=== PATIENT | male | born 1945 | race Caucasian/White ===

== ENCOUNTER 2016-09-06 06:49 | Outpatient (CLI) | payer MEDICARE, OTHER ==
[~2016-09-06] VITALS: Ht 185.4 cm; Wt 98.2 kg
--- NOTE | ~2016-09-06 | HEMODYNAMI ---
PATIENT:VISHAL RAUSCH MEDICAL RECORD: [id number] : 45 LOCATION:[facility] ADMISSION DATE: 09/06/16 Generatedon:09/06/20169:05 Patient name: VISHAL RAUSCH Patient #: [id number] SSN: DO B: 1945 Date of study: 09/06/2016 Page: Of Hemodynamic Procedure Report Patient Data Patient Demographics Procedure consent was obtained First Name: VISHAL Gender: Male Last Name: MIRACLE : 1945 Patient #: [id number] Age: 70 year(s) Race: Additional ID: [id number] Contact details [address]: [address] [place] [address] State: [place] City: [place] Zip code: [address] Past Medical History Allergies: No known allergies Admission Admission Data Admission Date: 09/06/2016 Admission Time: 6:49 Procedure Procedure Types Cath Procedure Diagnostic Procedure LHC LHC w/Coronaries Miscellaneous Procedures Moderate Sedation up to 30 minutes Procedure Description Procedure Date Procedure Date: 09/06/2016 Procedure Start Time: 8:53 Procedure End Time: 9:05 Procedure Staff Name Function Cory Jimenez MD Performing Physician Dalia Mota RT Scrub Robbin Ramírez RN Nurse Kavitha Baltazar RT Monitor Procedure Data Cath Procedure Fluoroscopy Diagnostic fluoroscopy Total fluoroscopy Time: 3.2 time: 3.2 min min Diagnostic fluoroscopy Total fluoroscopy dose: 426 dose: 426 mGy mGy Contrast Material Contrast Material Type Amount (ml) Isovue 300 52 Entry Location Entry Primary Successful Side Size Upsize Upsize Entry Closure Succes sful Closure Location (Fr) 1 (Fr) 2 (Fr) Remarks Device Remarks Radial Right 6 Fr artery Short Femoral Right 5 Fr Exoseal artery Estimated blood loss: 5 ml Diagnostic catheters Device Type Used For End Catheter Placement Terumo 5Fr Thierno 110cm Left Coronary catheter Angiography Cordis 5Fr JL 4.0 Left Coronary Catheter (MP) Angiography Cordis 5Fr 3DRC Catheter Right Coronary (MP) Angiography Cordis 5Fr Pigtail LV Angiography Catheter (MP) Procedure Complications No complications Procedure Medications Medication Administration Route Dosage Oxygen NC 2 l/min Heparin Flush Bag added to field 2 bags (1000units/500ml NS) 0.9% NaCl I.V. 100 ml/hr Fentanyl I.V. 50 mcg Versed I.V. 1 mg Fentanyl I.V. 50 mcg Versed I.V. 1 mg Radial Cocktail added to field 1 syringe (Verapomil 2mg/Nitro 400mcg/Heparin 1500units) Radial Cocktail I.A. 1 syringe (Verapomil 2mg/Nitro 400mcg/Heparin 1500units) Hemodynamics Rest Heart Rate: 59 (bpm) Pressure Samples Time Site Value (mmHg) Purpose Heart Use Rate(bpm) 8:54 LV 134/14,30 EDP 59 8:54 AO 127/60(87) Pullback 60 8:54 LV 151/12,43 Pullback 60 Gradients Valve Time Site 1 Site 2 Mean SEP/DFP Peak To Heart Use (mmHg) (sec/min) Peak Rate (mmHg) (bpm) Aortic 8:54 LV AO 12 20 24 60 151/12,43 127/60(87) Calculations Valve P-P Mean Valve Index Valve Source Name Gradient Area Flow (cm2) Aortic 24 12 24 12 Snapshots Pre Cath Intra NCS Post Cath Vital Signs Time Heart Resp SPO2 etCO2 [id number] NIBP (mmHg) Rhythm Pain Sedation Rate (ipm) (%) (mmHg) (mmHg) Status Level (bpm) 8:32:45 72 20 94 0 0 145/72(126) NSR 0 (11) 10(A) , No pain 8:37:05 57 20 96 0 0 139/71(117) NSR 0 (11) 10(A) , No pain 8:41:25 57 19 96 0 0 138/68(101) NSR 0 (11) 9(A) , No pain 8:45:37 60 20 90 0 0 100/53(77) NSR 0 (11) 9(A) , No pain 8:49:45 57 16 93 0 0 110/60(88) NSR 0 (11) 9(A) , No pain 8:53:59 58 17 94 0 0 112/59(82) NSR 0 (11) 9(A) , No pain 8:58:13 58 19 94 0 0 105/56(90) NSR 0 (11) 9(A) , No pain 9:02:23 59 18 95 0 0 108/59(83) NSR 0 (11) 9(A) , No pain Medications Time Medication Route Dose Verified Delivered Reason Notes E ffectiveness by by 8:20:01 Heparin Flush added 2 bags Robbin Robbin used for Bag to Darrell Ramírez RN procedure (1000units/500ml field RN NS) 8:20:51 Oxygen NC 2 l/min Robbin Robbin Per Darrell Ramírez RN physician RN 8:21:04 0.9% NaCl I.V. 100 Robbin Robbin Per ml/hr Darrell Ramírez RN physician RN 8:38:12 Fentanyl I.V. 50 mcg Robbin Robbin for sedation Darrell Ramírez RN RN 8:38:20 Versed I.V. 1 mg Robbin Robbin for sedation Darrell Ramírez RN RN 8:38:39 Radial Cocktail added 1 Robbin Robbin used for (Verapomil to syringe Darrell Ramírez RN procedure 2mg/Nitro field RN 400mcg/Heparin 1500units) 8:42:47 Radial Cocktail I.A. 1 Robbin Cory for (Verapomil syringe Darrell Jimenez MD vasodilation 2mg/Nitro RN 400mcg/Heparin 1500units) 8:50:24 Fentanyl I.V. 50 mcg Robbin Robbin for sedation Darrell Ramírez RN RN 8:50:27 Versed I.V. 1 mg Robbin Robbin for sedation Darrell Ramírez RN teradata developer Log Time Note 8:10:29 Robbin Ramírez RN sent for patient. Start room use. 8:18:16 Time tracking: Regular hours 8:18:20 Plan of Care:Hemodynamics will remain stable., Cardiac rhythm will remain stable., Comfort level will be maintained., Respiratory function will remain adequate., Patient/ family verbilizes understanding of procedure., Procedure tolerated without complication., Recovers from procedure without complications.. 8:18:25 Patient received from Pre/Post Procedure Room to CCL 1 Alert and oriented. Tansferred to table in Supine position. 8:18:26 Warm blankets applied, and aditi hugger turned on for patient comfort. 8:18:27 Correct patient and procedure confirmed by team. 8:18:28 Signed procedure consent form obtained from patient. 8:18:29 ECG and BP/O2 sat monitors applied to patient. 8:18:29 Full Disclosure recording started 8:20:01 Heparin Flush Bag (1000units/500ml NS) 2 bags added to field was administered by Robbin Ramírez RN; used for procedure; 8:20:51 Oxygen 2 l/min NC was administered by Robbin Ramírez RN; Per physician; 8:21:04 0.9% NaCl 100 ml/hr I.V. was administered by Robbin Ramírez RN; Per physician; 8:31:36 Vital chart was started 8:31:42 Rhythm: sinus bradycardia 8:34:13 H&P Date Dictated: 09/04/2016 Within 30 days and on chart.. 8:34:15 Pre-procedure instructions explained to patient. 8:34:15 Pre-op teaching completed and patient verbalized understanding. 8:34:17 Family in waiting room. 8:34:18 Patient NPO since Midnight. 8:34:25 Patient allergic to No known allergies 8:34:37 Is the patient allergic to Iodine/contrast media? No. 8:34:43 Is patient on blood thinner?No 8:34:45 Patient diabetic? Yes. 8:34:48 If diabetic: On Metformin? Yes 8:34:53 If on Metformin: Last Dose? 09/04/2016 8:34:57 Previous problem with sedation/anesthesia? No ? 8:34:58 Snore? Yes 8:34:59 Sleep apnea? No 8:35:00 Deviated septum? No 8:35:01 Opens mouth fully? Yes 8:35:02 Sticks out tongue? Yes 8:35:04 Airway obstruction? No ? 8:35:06 Dentures? Yes In 8:35:11 Pre procedure: right dorsailis pedis pulse 2+ Normal; easily identifiable; not easily obliterated 8:35:13 Modified Nikita's test Ulnar < 7 seconds 8:35:15 Patient pain scale 0/10 ?. 8:35:23 IV patent on arrival in left hand with 0.9% NaCl at KVO. 8:35:29 Lab results completed and on chart. 8:36:28 Right Radial & Right Groin area was prepped with chlora-prep and draped in sterile fashion 8:36:29 Alarms reviewed by R. N. 8:36:30 Sharps counted by scrub and verified by R.N. 8:36:34 Use device set Radial Dx 8:36:35 Acist Syringe opened to sterile field. 8:36:36 Medline Cath Pack opened to sterile field. 8:36:36 Bag Decanter opened to sterile field. 8:36:37 Terumo 6Fr Slender Glidesheath opened to sterile field. 8:36:37 St Darryn 260cm J .035 wire opened to sterile field. 8:36:38 Acist Hand Control opened to sterile field. 8:36:38 Acist Manifold opened to sterile field. 8:36:39 Tegaderm 4 x 4 opened to sterile field. 8:36:39 MBrace Wrist Support opened to sterile field. 8:37:44 Final Timeout: patient, procedure, and site verified with staff and physician. All members of the team are in agreement. 8:37:51 Right Radial site verified by team. 8:37:54 Physical assessment completed. ASA score P 2 - A patient with mild systemic disease as per Cory Jimenez MD. 8:37:57 Sedation plan: IV Moderate Sedation Versed, Fentanyl 8:38:12 Fentanyl 50 mcg I.V. was administered by Robbin Ramírez RN; for sedation; 8:38:20 Versed 1 mg I.V. was administered by Robbin Ramírez RN; for sedation; 8:38:39 Radial Cocktail (Verapomil 2mg/Nitro 400mcg/Heparin 1500units) 1 syringe added to field was administered by Robbin Ramírez RN; used for procedure; 8:40:53 Zero performed for pressure channel P1 8:41:13 Local anesthetic to right radial artery with Lidocaine 2% by Cory Jimenez MD.INITIAL ACCESS ONLY 8:41:53 A 6 Fr Short sheath was inserted into the Right Radial artery 8:42:47 Radial Cocktail (Verapomil 2mg/Nitro 400mcg/Heparin 1500units) 1 syringe I.A. was administered by Cory Jimenez MD; for vasodilation; 8:45:35 A Terumo 5Fr Thierno 110cm catheter was advanced over the wire and used for Left Coronary Angiography. removed unable to torque catheter. 8:45:39 Local anesthetic to right femoral artery with Lidocaine 2% by Cory Jimenez MD.ADDITIONAL ACCESS 8:46:14 Terumo 5Fr [place] Sheath opened to sterile field. 8:46:15 Diagnostic Infinity 5Fr Multipack catheter opened to sterile field. 8:48:24 A 5 Fr sheath was inserted into the Right Femoral artery 8:48:31 A Cordis 5Fr JL 4.0 Catheter (MP) was advanced over the wire and used for Left Coronary Angiography. 8:50:24 Fentanyl 50 mcg I.V. was administered by Robbin Ramírez RN; for sedation; 8:50:27 Versed 1 mg I.V. was administered by Robbin Ramírez RN; for sedation; 8:50:54 Catheter removed. 8:51:01 A Cordis 5Fr 3DRC Catheter (MP) was advanced over the wire and used for Right Coronary Angiography. 8:52:07 Catheter removed. 8:52:12 A Cordis 5Fr Pigtail Catheter (MP) was advanced over the wire and used for LV Angiography. 8:53:51 Procedure started. 8:54:05 LV gram done using ROY 8:54:06 LV hemodynamics recorded. 8:54:09 Injector settings: Ml/sec: 10, Volume: 20, 8:54:16 EF : 60 % 8:55:49 Catheter removed. 8:55:56 Cordis 5Fr Exoseal opened to sterile field. 8:56:15 Sheath removed intact; hemostasis achieved with Exoseal to the Right Femoral artery. 8:56:16 Procedure ended.(Physican Out) 8:57:00 Fluoroscopy time 03.20 minutes. 8:57:05 Fluoroscopy dose: 426 mGy 8:57:05 Flurop Dose total: 426 8:57:12 Contrast amount:Isovue 300 52ml. 8:57:14 Sharps counted by scrub and verified by R.N. 8:57:16 Insertion/operative site no bleeding no hematoma. 8:57:19 Post-op/insertion site Right Femoral artery dressed using a 4 x 4 and Tegaderm. 8:57:22 Post right femoral artery:stable, clean and dry 8:57:55 Post Procedure Pulses reassessed and unchanged 8:57:59 Post-procedure physical assessment completed. ASA score P 2 - A patient with mild systemic disease as per Cory Jimenez MD. 8:58:03 Post procedure rhythm: unchanged. 8:58:07 Estimated blood loss: 5 ml 8:58:08 Post procedure instruction explained to patient.Patient verbalizes understanding. 8:58:09 Patient needs reinforcement of post procedure teaching. 8:58:21 Procedure type changed to Cath procedure, Diagnostic procedure, LHC, LHC w/Coronaries, Miscellaneous Procedures, Moderate Sedation up to 30 minutes 8:58:27 Procedure Complication : No complications 8:58:31 See physician's report for complete and final results. 8:59:05 Cook 21G 4cm Radial Needle opened to sterile field. 8:59:34 Procedure and supply charges have been captured, reviewed, submitted and are correct. 9:03:10 TR band inflated with 9cc of air. 9:03:20 Terumo TR Band Standard opened to sterile field. 9:04:59 Vital chart was stopped 9:05:01 Report given to Pre/Post Procedure Room. 9:05:04 Patient transfered to Pre/Post Procedure Room with Stretcher. 9:05:19 Procedure ended. 9:05:19 Full Disclosure recording stopped 9:05:22 End room use (Document Last) Device Usage Item Name Manufacture Quantity Catalog Hospital Part Current Minimal Lot# / Number Charge Number Stock Stock Serial# Code Acist Acist 1 29627 015761 368430 [id number] 20 Syringe [employer] Inc Medline Cardinal 1 [id number] 835959 89845 211881 5 Cath Pack Health Bag Microtek 1 2002S 187003 44220 670204 5 [employer] Terumo 6Fr Terumo 1 [id number] 616830 435971 237617 [address] St Darryn 1 812071 685846 981455 143885 30 260cm J .035 wire Acist Hand Acist 1 89611 877944 120316 041268 5 Control [employer] Inc Acist Acist 1 20936 107849 563292 049077 5 Manifold Medical [employer] Inc Tegaderm 4 3M 1 1626W 194823 463920 645363 5 x 4 MBrace Advanced 1 140-0250-00 942013 79921 540711 5 Wrist Vascular Support Dynamics Terumo 5Fr Terumo 1 40-8847 068453 567765 056386 5 Thierno 110cm catheter Terumo 5Fr Terumo 1 [id number] 150677 858219 409443 40 [place] Sheath Diagnostic Cardinal 1 [id number] 166762 30257 319443 30 Infinity Health 5Fr Multipack catheter Cordis 5Fr Cardinal 1 166009 5 JL 4.0 Health Catheter (MP) Cordis 5Fr Cardinal 1 740846 5 3DRC Health Catheter (MP) Cordis 5Fr Cardinal 1 237220 5 Pigtail Health Catheter (MP) Cordis 5Fr Cardinal 1 EX500 459635 737261 968232 10 [facility] Cook 21G [facility] 1 [id number] 895982 621889 709340 5 4cm Radial Needle Terumo TR Terumo 1 [id number] 039008 740331 646001 40 Band Standard Signature Audit [place] Stage Time Signature Unsigned Intra-Procedure 09/06/2016 Dalia 9:05:38 AM Counts RT(R) Signatures Monitor : Kavitha Baltazar RT Signature : Date : Time : [id number] [place] [address]
[2016-09-06] MEDS ORDERED: SYNTHROID100 MCG PO (07:27)
[2016-09-06] MEDS ORDERED: ACTOS45 MG PO (07:28)
[2016-09-06] MEDS ORDERED: CELEXA20 MG PO (07:28)
[2016-09-06] MEDS ORDERED: LIPOFEN50 MG PO (07:29)
[2016-09-06] MEDS ORDERED: LIPITOR40 MG PO (07:29)
[2016-09-06] MEDS ORDERED: GLUCOPHAGE500 MG PO (07:30)
[2016-09-06] MEDS ORDERED: GLIMEPIRIDE4 MG PO (07:31)
[2016-09-06] MEDS ORDERED: BAYER CHEWABLE81 MG PO (07:32)
[2016-09-06] MEDS ORDERED: CENTRUM MEN'S1 EACH PO (07:32)
[2016-09-06 07:42] VITALS: BP 180/90; Ht 185.4 cm; Wt 98.2 kg
[2016-09-06 07:56] LABS: BASOPHILS 0.7 % (0-2); EOSINOPHILS 2.1 % (0-7); HEMATOCRIT 36.4 % (42.0-54.0); HEMOGLOBIN 12.2 g/dL (13.5-17.5); IMMATURE GRANULOCYTES 0.2 % (0-5); LYMPHOCYTES 42.2 % (15-50); MCH 32.6 pg (26.0-34.0); MCHC 33.5 g/dL (31.0-37.0); MCV 97.3 fL (80.0-100.0); MEAN PLATELET VOLUME 11.6 fL (7.4-10.4); MONOCYTES 9.5 % (2-11); NEUTROPHILS 45.3 % (40-80); PLATELET COUNT 218 10x3/uL (130-400); RBC 3.74 10x6/uL (4.20-6.10); RDW 14.6 % (11.5-14.5); WBC 5.8 10x3/uL (4.8-10.8)
[2016-09-06 08:17] LABS: ANION GAP 13.6 mmol/L (8-16); CALCIUM 8.3 mg/dL (8.5-10.1); CARBON DIOXIDE 24.1 mmol/L (21.0-32.0); CREATININE - SERUM 1.3 mg/dL (0.6-1.3); POTASSIUM - SERUM 4.7 mmol/L (3.5-5.1)
--- NOTE | 2016-09-06 09:15 | NUR ---
0915 RECIEVED TO ROOM VIA STRETCHER FROM BLOOD BANK BOOKING CLERK WITH CHEST PAIN DENIED. TR BAND TO R/WRIST CDI NO BLEEDING NO HEMATOMA NOTED. 5 FR EXOSEAL R/GROIN CDI NO BLEEDING NO HEMATOMA NOTED. 09 TR BAND REMAINS CDI VSS WITH HR SB AT 58 CHEST PAIN IS DENIED. INSTRUCTED PATIENT TO KEEP HEAD FLAT ON PILLOW WITH RLE STRAIGHT
--- NOTE | 2016-09-06 10:01 | NUR ---
VSS WITH NO DISTRESS NOTED. PATIENT SLEEPING QUIETLY FAMILY AT SIDE. R/GROIN CDI NO BLEEDING NO HEMATOMA NOTED
--- NOTE | 2016-09-06 10:10 | NUR ---
DR HINES AT BEDSIDE TALKING TO AND PATIENT VSS NO DISTRESS NOTED R/GROIN CDI NO CHANGE IN ASSESSMENT
--- NOTE | 2016-09-06 10:34 | NUR ---
VSS WITH CHEST PAIN DENIED TR BAND REMAINS TO R/WRIST CDI NO BLEEDING NO HEMATOMA NOTED. 5 FR EXOSEAL R/GROIN CDI NO BLEEDING NO HEMATOMA NOTED
--- NOTE | 2016-09-06 11:04 | NUR ---
NO CHANGE IN ASSESSMENT PATIENT CONTINUES TO SLEEP
--- NOTE | 2016-09-06 11:11 | NUR ---
2 CC AIR REMOVED FROM TR BAND WITH NO BLEEDING NOTED. 5 FR EXOSEAL R/GROIN CDI NO BLEEDING NO HEMATOMA NOTED. WILL MONITOR
--- NOTE | 2016-09-06 11:21 | NUR ---
REPOSITIONED TO SITTING WITH HOB UP 30 DEGREES. 2 CC AIR REMOVED FROM TR BAND WITH NO BLEEDING NOTED. 5 FR EXOSEAL R/GROIN REMAINS CDI WITH CHEST PAIN DENIED.
--- NOTE | 2016-09-06 11:34 | NUR ---
PIV REMOVED WITH DRESSING APPLIED. 2 CC AIR REMOVED FROM TR BAND WITH NO BLEEDING NO HEMATOMA NOTED. PATIENT UP TO GET DRESSED FOR DISCHARGE HOME CHEST PAIN IS DENIED.
--- NOTE | 2016-09-06 11:54 | NUR ---
VERBAL AND WRITTEN DISCHARGE GONE OVER WITH PATIENT AND BOTH VERBALIZED UNDERSTANDING OF INSTRUCTIONS. TR BAND REMOVED WITH DRESSING APPLIED NO BLEEDING NO HEMATOMA NOTED. CHEST PAIN IS DENIED. LEFT VIA WC TO PARKING FOR TO DRIVE HOME
--- NOTE | 2016-09-07 13:26 | OP ---
PATIENT NAME: VISHAL RAUSCH MEDICAL RECORD: [id number] :45 LOCATION:[facility] ADMISSION DATE: SURGEON: YUE HINES M.D. DATE OF OPERATION: 09/06/2016 PROCEDURES PERFORMED: 1. Selective coronary angiography. 2. Left heart catheterization with ventriculogram. INDICATION: A 72-year-old gentleman presents with recurrent chest pain. Recent stress testing revealed fixed inferior wall defect. REFERRING PHYSICIAN: Tyrone Walters MD. EQUIPMENT USED: A 5-[place] JL4, Trevor right, pigtail catheter. TECHNIQUE: A 5-[place] sheath was inserted in retrograde fashion in the right common femoral artery. Next, selective coronary angiography was performed in standard views 5-[place] JL4 and Trevor right. Left heart catheterization performed using pigtail catheter. CORONARY ANATOMY: 1. Left main: Left main trunk is large in caliber. It gives rise to the LAD and circumflex. There is no obstruction. 2. LAD: This is a moderate caliber vessel extending to the apex. In the mid segment, there appears to be a smooth 40% stenosis. In some views, it could be as much as 50%. It is not ulcerated or hazy. 3. Circumflex: This is of moderate in caliber. The mid vessel has been stented. The stent is widely patent. Distal to the stent there does appear to be a hazy 60% stenosis. Proximal stent, there appears to be a 50% stenosis as well. 4. Right coronary artery: This vessel is moderate in caliber and dominant. It has mild irregularities throughout its course. 5. Left ventricle: Left ventricle is normal in size and function. No wall motion abnormalities are seen. Estimated ejection fraction is 55% to 60%. 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 His recent stress test ____ inferior wall defect. Ejection fraction appears normal. RECOMMENDATIONS: I will review the situation with the patient. If he continues to have chest discomfort, may consider intravascular ultrasound of the circumflex and possibly the LAD, since the stress test was negative. TRANSINT:[id number] Voice Confirmation ID: [id number] DOCUMENT ID: [id number] YUE HINES M.D. at 1322 CC: [id number] DICTATION DATE: 09/06/16 1001 LEAD RECREATION ASSISTANT: 09/06/16 2302 DEP CLI 09/06/16 [facility] [address] [place] [address]
== END 2016-09-06 12:00 | disposition home or self-care (01) ==
LOC: D.CATH 06:49
PROVIDERS: Internal Medicine Cardiovascular Disease
DX: I25.10 Atherosclerotic heart disease of native coronary artery without angina pectoris (principal)

== ENCOUNTER → 2018-05-13 13:27 | Outpatient (CLI) | payer MEDICARE, OTHER ==
[2016-09-06 07:42] VITALS: BMI 28.5
[~2018-05-13 13:27] MED LIST: ACTOS45 MG PO; BAYER CHEWABLE81 MG PO; CELEXA20 MG PO; CENTRUM MEN'S1 EACH PO; GLIMEPIRIDE4 MG PO; GLUCOPHAGE500 MG PO; LIPITOR40 MG PO; LIPOFEN50 MG PO; SYNTHROID100 MCG PO
== END | disposition home or self-care (01) ==
LOC: D.CT 13:27
DX: N28.89 Other specified disorders of kidney and ureter (principal); I71.4 Abdominal aortic aneurysm, without rupture

== ENCOUNTER → 2020-01-12 07:49 | Outpatient (CLI) | payer MEDICARE, OTHER ==
[2016-09-06 07:42] VITALS: BMI 28.5
== END | disposition home or self-care (01) ==
LOC: D.RAD 07:49
PROVIDERS: ATTEND Surgery
DX: R47.02 Dysphasia (principal)